=== PATIENT | male | born 1985 | race Caucasian/White ===

== ENCOUNTER 2020-10-16 20:09 | Emergency (ER) | payer OTHER ==
[~2020-10-16] VITALS: Ht 172.7 cm; Wt 83.6 kg
[2020-10-16] MEDS ORDERED: LIDOCAINE-MPF 1%, 5ML INFIL ONE (20:30)
[2020-10-16] MEDS ORDERED: DIPH,PERTUSS(ACELL),TET VAC/PF 0.5 ML IM-VACC ONE (20:30)
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
[2020-10-16] MEDS ORDERED: LIDOCAINE-MPF 1%, 5ML ONE (22:19)
--- NOTE | 2020-10-16 23:40 | NUR ---
Patient given discharge instructions and they have confirmed that they understand the instructions. Patient ambulatory with steady gait. nad, denies additional questions or needs, wound dressed with bacitracin. no personal belongings left in room after dc.
[2020-10-16] MEDS ORDERED: NEOSPORIN OINT. PKT 1 PACKET ONE (23:42)
[2020-10-16 23:55] VITALS: BP 136/78
== END 2020-10-16 23:57 | disposition home or self-care (01) ==
LOC: ED 20:39
DX: S01.412A Laceration without foreign body of left cheek and temporomandibular area, initial encounter (principal); W18.30XA Fall on same level, unspecified, initial encounter; Y93.89 Activity, other specified; Y92.828 Other wilderness area as the place of occurrence of the external cause; Y99.8 Other external cause status
CPT/HCPCS: 12053; 70100; 99283; 99284